=== PATIENT | female | born 1945 | race Caucasian/White ===

== ENCOUNTER 2017-11-05 10:30 | Emergency (ER) | payer MEDICARE, OTHER ==
--- NOTE | 2017-11-05 10:33 | ER Report ---
History and Physical Time Seen By MD: 10:32 HPI/MELONY CHIEF COMPLAINT: "Weird sensation in her heart" HISTORY OF PRESENT ILLNESS: Patient is a 72-year-old female who states that around 8:15 this morning she felt a rushing sensation in her head followed by a little bit of sweating and nausea. This was followed by palpitations and some pressure in the chest. States that she was doing a crossword puzzle at the time. She denies any fevers or chills. She states that she took 324 mg of aspirin prior to arrival to the emergency department. She still reports some mild chest pressure at this time. She denies any current shortness of breath she denies any current headache. She denies any current nausea REVIEW OF SYSTEMS: Constitutional: No fever, no chills. Eyes: No discharge. ENT: No sore throat. Cardiovascular: Palpitations, chest pressure Respiratory: No cough, no shortness of breath. Gastrointestinal: No abdominal pain, no vomiting. Genitourinary: No hematuria. Musculoskeletal: No back pain. Skin: No rashes. Neurological: No headache. Allergies: Coded Allergies: No Known Drug Allergies (Unverified , 11/05/17) Home Meds Reported Medications Aspirin (ASPIR 81) 81 Mg Tablet.dr, 81 MG PO QDAY, TAB 11/05/17 Levothyroxine Sodium (LEVOTHYROXINE SODIUM) 50 Mcg Tablet, 100 MCG PO QDAY, TAB 11/05/17 Losartan Potassium (LOSARTAN POTASSIUM) 25 Mg Tablet, 25 MG PO QDAY 11/05/17 Metoprolol Succinate (METOPROLOL SUCCINATE) 50 Mg Tab.er.24h, 1 TAB PO QDAY, TAB 11/05/17 Past Medical/Surgical History Past medical history for hypertension and hypothyroidism. Constitutional Vital Sign - Last 24 Hours 11/05/17 11/05/17 11/05/17 11/05/17 10:35 10:39 11:00 11:30 Pulse 92 78 Resp 20 9 B/P (MAP) 185/85 185/85 (118) 161/75 (103) Pulse Ox 96 91 O2 Delivery Room Air O2 Flow Rate 2.0 11/05/17 11/05/17 11/05/17 11/05/17 11:30 12:00 12:05 12:30 Pulse 77 72 69 Resp 9 21 14 B/P (MAP) 145/62 (89) 135/62 (86) 147/70 (95) Pulse Ox 94 94 95 11/05/17 11/05/17 11/05/17 11/05/17 12:35 13:00 13:05 14:00 Pulse 67 68 Resp 0 8 B/P (MAP) 151/65 (93) 143/73 (96) Pulse Ox 97 96 11/05/17 14:05 Pulse 67 Physical Exam General/Constitutional: Patient is awake, alert, nontoxic and in no acute respiratory distress. Head: Normocephalic and atraumatic. Eyes: Conjunctival clear, Sclera are clear and anicteric. Ears:External canals are clear. Tympanic membranes are clear with normal landmarks and light reflex. Oropharyngeal: Mucous membranes are moist. Neck: Supple, no adenopathy. Cardiovascular: Heart is regular rate and rhythm without audible murmurs, rubs or gallops. Pulmonary: Lungs are clear to auscultation bilaterally. There are no wheezes, rales, or rhonchi. Chest rise is symmetrical Abdomen: Soft, nontender, no guarding or peritoneal signs. Extremities: No gross deformities, No peripheral cyanosis. Able to move all 4 extremities. Neuro: Alert and oriented X3 Skin: No rashes, skin is warm dry and well perfused. Medical Decision Making Data Points Result Diagram: 11/05/17 1051 11/05/17 1051 Laboratory Hematology Test 11/05/17 10:51 11/05/17 13:32 Red Blood Count 5.24 M/uL (4.17-5.56) Mean Corpuscular Volume 84.8 fL (80.0-96.0) Mean Corpuscular Hemoglobin 29.2 pg (26.0-33.0) Mean Corpuscular Hemoglobin Concent 34.5 g/dL (32.0-36.0) Red Cell Distribution Width 15.4 % (11.5-14.5) Mean Platelet Volume 7.6 fL (7.2-11.1) Neutrophils (%) (Auto) 63.2 % (39.4-72.5) Lymphocytes (%) (Auto) 22.6 % (17.6-49.6) Monocytes (%) (Auto) 9.1 % (4.1-12.4) Eosinophils (%) (Auto) 3.9 % (0.4-6.7) Basophils (%) (Auto) 1.2 % (0.3-1.4) Nucleated RBC Relative Count (auto) 0.0 /100WBC Neutrophils # (Auto) 3.0 K/uL (2.0-7.4) Lymphocytes # (Auto) 1.1 K/uL (1.3-3.6) Monocytes # (Auto) 0.4 K/uL (0.3-1.0) Eosinophils # (Auto) 0.2 K/uL (0.0-0.5) Basophils # (Auto) 0.1 K/uL (0.0-0.1) Nucleated RBC Absolute Count (auto) 0.00 K/uL Prothrombin Time 12.7 seconds (12.0-14.4) Prothromb Time International Ratio 0.95 Activated Partial Thromboplast Time 30 seconds (23-35) Sodium Level 141 mmol/L (137-145) Potassium Level 4.0 mmol/L (3.5-5.0) Chloride Level 107 mmol/L (98-107) Carbon Dioxide Level 24 mmol/L (22-31) Blood Urea Nitrogen 17 mg/dl (7-18) Creatinine 0.90 mg/dl (0.52-1.04) Glomerular Filtration Rate Calc > 60.0 Random Glucose 118 mg/dl (75-110) Calcium Level 9.0 mg/dl (8.4-10.2) Total Bilirubin 0.4 mg/dl (0.2-1.3) Aspartate Amino Transf (AST/SGOT) 32 U/L (0-35) Alanine Aminotransferase (ALT/SGPT) 27 U/L (0-56) Alkaline Phosphatase 132 U/L (0-126) B-Type Natriuretic Peptide 22 pg/ml (0-100) Total Protein 6.9 g/dl (6.3-8.2) Albumin 4.3 g/dl (3.5-5.0) Troponin I < 0.012 ng/ml Chemistry Test 11/05/17 10:51 11/05/17 13:32 White Blood Count 4.8 k/uL (4.5-11.0) Red Blood Count 5.24 M/uL (4.17-5.56) Hemoglobin 15.3 g/dL (12.0-16.0) Hematocrit 44.5 % (34.0-47.0) Mean Corpuscular Volume 84.8 fL (80.0-96.0) Mean Corpuscular Hemoglobin 29.2 pg (26.0-33.0) Mean Corpuscular Hemoglobin Concent 34.5 g/dL (32.0-36.0) Red Cell Distribution Width 15.4 % (11.5-14.5) Platelet Count 424 K/uL (150-450) Mean Platelet Volume 7.6 fL (7.2-11.1) Neutrophils (%) (Auto) 63.2 % (39.4-72.5) Lymphocytes (%) (Auto) 22.6 % (17.6-49.6) Monocytes (%) (Auto) 9.1 % (4.1-12.4) Eosinophils (%) (Auto) 3.9 % (0.4-6.7) Basophils (%) (Auto) 1.2 % (0.3-1.4) Nucleated RBC Relative Count (auto) 0.0 /100WBC Neutrophils # (Auto) 3.0 K/uL (2.0-7.4) Lymphocytes # (Auto) 1.1 K/uL (1.3-3.6) Monocytes # (Auto) 0.4 K/uL (0.3-1.0) Eosinophils # (Auto) 0.2 K/uL (0.0-0.5) Basophils # (Auto) 0.1 K/uL (0.0-0.1) Nucleated RBC Absolute Count (auto) 0.00 K/uL Prothrombin Time 12.7 seconds (12.0-14.4) Prothromb Time International Ratio 0.95 Activated Partial Thromboplast Time 30 seconds (23-35) Glomerular Filtration Rate Calc > 60.0 Calcium Level 9.0 mg/dl (8.4-10.2) Total Bilirubin 0.4 mg/dl (0.2-1.3) Aspartate Amino Transf (AST/SGOT) 32 U/L (0-35) Alanine Aminotransferase (ALT/SGPT) 27 U/L (0-56) Alkaline Phosphatase 132 U/L (0-126) B-Type Natriuretic Peptide 22 pg/ml (0-100) Total Protein 6.9 g/dl (6.3-8.2) Albumin 4.3 g/dl (3.5-5.0) Troponin I < 0.012 ng/ml Coagulation Test 11/05/17 10:51 Prothrombin Time 12.7 seconds Prothromb Time International Ratio 0.95 Activated Partial Thromboplast Time 30 seconds EKG/Imaging EKG Interpretation EKG shows normal sinus rhythm with ventricular rate of [address] segment or T-wave abnormalities are noted. Monitor Interpretation: Normal Sinus Rhythm Imaging FACILITY: [facility] - [place] PATIENT NAME: Swati Valdez : 1945 MR: [id number] V: [id number] EXAM DATE: ORDERING PHYSICIAN: GRICELDA CRUZ TECHNOLOGIST: Location: [facility] - [place] Patient: Swati Valdez : 1945 Visit/Account:[id number] Date of Sevice: 11/05/2017 CHEST SINGLE AP HISTORY: Chest pain. COMPARISON: None available. FINDINGS: Lines/tubes: None. Lungs/pleura: Negative. Heart: Negative. Mediastinum: Negative. Bony structures/body wall: Degenerative changes in the spine. No acute osseous findings. IMPRESSION: No acute cardiopulmonary process. Report Dictated By: Hilton San MD at 11/05/2017 11:10 AM Report E-Signed By: Hilton San MD at 11/05/2017 11:11 AM WSN:[id number] FACILITY: [facility] [place] PATIENT NAME: Swati Valdez : 1945 MR: [id number] V: [id number] EXAM DATE: [id number] ORDERING PHYSICIAN: GRICELDA CRUZ TECHNOLOGIST: Location: [facility] [place] Patient: Swati Valdez : 1945 Visit/Account:[id number] Date of Sevice: 11/05/2017 EXAMINATION: CT head without IV contrast HISTORY: Dizziness, chest pain. COMPARISON: None. TECHNIQUE: Contiguous axial images were obtained from the skull base to the vertex without intravenous contrast. Sagittal and coronal reformatted images are also submitted. One of the following dose optimization techniques was utilized in the performance of this exam: Automated exposure control; adjustment of the mA and/ or kV according to the patient's size; or use of an iterative reconstruction technique. Specific details can be referenced in the facility's radiology CT exam operational policy. FINDINGS: Brain volume: Normal. Ventricles: Incidental cavum velum interpositum, a normal variant. Acute ischemic changes: There is no loss of hutchison-white differentiation to suggest acute ischemia. Hemorrhage: No acute intracranial hemorrhage. Masses/edema: None. Hutchison-white: Negative. White matter: A few hypodensities in the deep white matter bilaterally. Vessels: Minimal atherosclerotic calcifications of the carotid siphons. Extra-axial: Negative. Calvarium/scalp: Negative. Skull base/visualized face: Negative. Visualized sinuses/orbits: Mild mucosal thickening of the paranasal sinuses, worst in the bilateral ethmoid air cells. Mild nasal septal deviation to the left. IMPRESSION: 1. No intracranial mass lesion or hemorrhage. No CT evidence of acute infarct. 2. Mild nonspecific white matter disease is suspicious for chronic small vessel ischemia. Report Dictated By: Rosanne Massey MD at 11/05/2017 11:20 AM Report E-Signed By: Rosanne Massey MD at 11/05/2017 11:23 AM WSN:[id number] ED Course/Re-evaluation Clinical Indication for ER IV: IV Access ED Course 11/05/2017 10:48:31 am patient will have cardiac workup performed with delta troponin. Initial EKG is unremarkable. Patient did receive aspirin. We will continue to monitor patient in the emergency department Re-evaluation 11/05/2017 2:03:44 pm repeat troponin negative patient remained symptom-free we 'll discharge home Decision to Disposition Date: Nov 05, 2017 Decision to Disposition Time: 14:03 Depart Departure Latest Vital Signs Vital Signs Date Time Temp Pulse Resp B/P (MAP) Pulse Ox O2 Delivery O2 Flow Rate FiO2 11/05/17 14:05 67 11/05/17 14:00 143/73 (96) 11/05/17 13:05 8 96 11/05/17 11:30 2.0 11/05/17 10:35 Room Air Impression: Primary Impression: Vasovagal episode Condition: Improved Disposition: HOME OR SELF-CARE Referrals: MARLIN OTTO MD (PCP) CHIN DUBOSE DO 1 Week Schedule possible further evaluation with a shear setter Patient Instructions: Near Syncope (ED), Palpitations (ED) KASARDA,GRICELDA C MD Nov 05, 2017 10:33
[2017-11-05] MEDS ORDERED: ASPIRIN 81 MG CHEW PO ONE (10:35)
[2017-11-05] MEDS ORDERED: LEVO50TA86 PO (10:46)
[2017-11-05] MEDS ORDERED: LOSA25TA50 PO (10:46)
[2017-11-05] MEDS ORDERED: METO50TA19 PO (10:46)
[2017-11-05] MEDS ORDERED: ASPI-1471 PO (10:46)
[2017-11-05 11:04] LABS: PLATELET COUNT, AUTOMATED 424 K/uL (150-450)
[2017-11-05 11:07] LABS: INR 0.95
--- NOTE | 2017-11-05 11:14 | EKG ---
FACILITY: [facility] PATIENT NAME: ATUL PAIGE : [id number] MR: [id number] V: [id number] EXAM DATE: ORDERING PHYSICIAN: GRICELDA CRUZ TECHNOLOGIST: FAM Test Reason : CP Blood Pressure : / mmHG Vent. Rate : 080 BPM Atrial Rate : 080 BPM P-R Int : 176 ms QRS Dur : 094 ms QT Int : 382 ms P-R-T Axes : 052 024 022 degrees QTc Int : 440 ms Sinus rhythm No acute appearing findings No previous ECGs available Confirmed by BRIANA OTTO ([id number]) on 11/05/2017 11:30:21 AM Referred By: ANTHONY Confirmed By:BRIANA OTTO
--- NOTE | 2017-11-05 11:16 | RADIOLOGY IMAGING REPORT ---
[place]ACILITY[place] [facility] [place]IENT NAME: Swati Valdez : 1945 MR: [id number] V: [id number] EXAM DATE: ORDERING PHYSICIAN: GRICELDA CRUZ TECHNOLOGIST: Location: [facility] - [place] Patient: Swati Valdez : 1945 Visit/Account:[id number] Date of Sevice: 11/05/2017 CHEST SINGLE AP HISTORY: Chest pain. COMPARISON: None available. FINDINGS: Lines/tubes: None. Lungs/pleura: Negative. Heart: Negative. Mediastinum: Negative. Bony structures/body wall: Degenerative changes in the spine. No acute osseous findings. IMPRESSION: No acute cardiopulmonary process. Report Dictated By: Hilton San MD at 11/05/2017 11:10 AM Report E-Signed By: Hilton San MD at 11/05/2017 11:11 AM WSN:[id number]
--- NOTE | 2017-11-05 11:28 | RADIOLOGY IMAGING REPORT ---
FACILITY: [facility] - [place] PATIENT NAME: Swati Valdez : 1945 MR: [id number] V: [id number] EXAM DATE: ORDERING PHYSICIAN: GRICELDA CRUZ TECHNOLOGIST: Location: [facility] - [place] Patient: Swati Valdez : 1945 Visit/Account:[id number] Date of Sevice: 11/05/2017 EXAMINATION: CT head without IV contrast HISTORY: Dizziness, chest pain. COMPARISON: None. TECHNIQUE: Contiguous axial images were obtained from the skull base to the vertex without intraven ous contrast. Sagittal and coronal reformatted images are also submitted. One of the following dose optimization techniques was utilized in the performance of this exam: Autom ated exposure control; adjustment of the mA and/or kV according to the patient's size; or use of an i terative reconstruction technique. Specific details can be referenced in the facility's radiology C T exam operational policy. FINDINGS: Brain volume: Normal. Ventricles: Incidental cavum velum interpositum, a normal variant. Acute ischemic changes: There is no loss of hutchison-white differentiation to suggest acute ischemia. Hemorrhage: No acute intracranial hemorrhage. Masses/edema: None. Hutchison-white: Negative. White matter: A few hypodensities in the deep white matter bilaterally. Vessels: Minimal atherosclerotic calcifications of the carotid siphons. Extra-axial: Negative. Calvarium/scalp: Negative. Skull base/visualized face: Negative. Visualized sinuses/orbits: Mild mucosal thickening of the paranasal sinuses, worst in the bilateral ethmoid air cells. Mild nasal septal deviation to the left. IMPRESSION: 1. No intracranial mass lesion or hemorrhage. No CT evidence of acute infarct. 2. Mild nonspecific white matter disease is suspicious for chronic small vessel ischemia. Report Dictated By: Rosanne Massey MD at 11/05/2017 11:20 AM Report E-Signed By: Rosanne Massey MD at 11/05/2017 11:23 AM WSN:[id number]
[2017-11-05 14:00] VITALS: BP 143/73
== END 2017-11-05 14:12 | disposition home or self-care (01) ==
LOC: ER 10:34
DX: R55 Syncope and collapse (principal); I10 Essential (primary) hypertension; E03.9 Hypothyroidism, unspecified; R42 Dizziness and giddiness
CPT/HCPCS: 36415; 70450; 71045; 82040; 82247; 82310; 82374; 82435; 82565; 82947; 83880; 84075; 84132; 84155; 84295; 84443; 84450; 84460; 84484; 84520; 85025; 85610; 85730; 93005; 99284

== ENCOUNTER → 2017-12-01 | Outpatient (CLI) | payer MEDICARE, OTHER ==
[~2017-12-01] MED LIST: ASPI-1471 PO; LEVO50TA86 PO; LOSA25TA50 PO; METO50TA19 PO; REGADENOSON 0.4 MG/5 ML SYR ONE
--- NOTE | 2017-12-01 16:34 | RT STRESS TEST REPORT ---
FACILITY: [facility] - [place] PATIENT NAME: ATUL PAIGE : [id number] MR: [id number] V: [id number] EXAM DATE: ORDERING PHYSICIAN: HENRY DUBOSE TECHNOLOGIST: Benigno Acquisition Time: 2017-12-01 14:41:41 Total Exercise Time: 00:01:00 Test Indications: Chest Discomfort Medications: SEE NUC MED SHEET Protocol: LEXISCAN Max HR: 098 BPM 65% of Pred: 149 BPM Max BP: 161/070 mmHG Max Work Load: 1.0 METS Stress was performed using Lexiscan protocol. She experienced some chest tightness with the infusion. This resolved very quickly. No significant EKG changes were noted. No dysrhythmias were recorded. Await Myoview Images. Confirmed by BRIANA OTTO ([id number]) on 12/01/2017 4:33:28 PM Referred By: Henry Dubsoe Overread By: BRIANA OTTO
--- NOTE | 2017-12-02 09:29 | RADIOLOGY IMAGING REPORT ---
FACILITY: [facility] [place] PATIENT NAME: Swati Valdez : 1945 MR: [id number] V: [id number] EXAM DATE: ORDERING PHYSICIAN: CHIN DUBOSE TECHNOLOGIST: Location: [facility] - [place] Patient: Swati Valdez : 1945 Visit/Account:[id number] Date of Sevice: 12/01/2017 EXAMINATION: Single isotope SPECT imaging with regadenoson infusion and gated SPECT imaging. DATE OF EXAMINATION: 12/01/2017. DATE OF INTERPRETATION: 12/02/2017. REQUESTING PHYSICIAN: CHIN DUBOSE. INDICATION: The patient is a 72-year-old female evaluated for chest pain. PROCEDURE: After informed consent the patient received an intravenous injection of 11.4 mCi of Tc-99 m sestamibi followed at an appropriate time interval by rest imaging. The patient then subsequently received an intravenous infusion of 0.4 mg of regadenoson per protocol without complication. Resting heart rate was 74 bpm with a peak heart rate of 96 bpm. Blood pressure at rest was 142 / 71 and fol lowing infusion was 161 / 70. Baseline EKG demonstrates normal sinus rhythm, normal ST and T-wave.. There were no EKG changes of ischemia following infusion. Symptoms were nonspecific. The patient t hen received an intravenous injection of 29.2 mCi of Tc-99m sestamibi followed by stress imaging. RAW DATA: Examination of the summed raw data revealed a good quality study. MYOCARDIAL PERFUSION: The tomographic images demonstrate no evidence of infarct or ischemia. Transie nt ischemic dilation measures 1.29 however visibly does not appear to be dilated. GATED IMAGES: The gated images demonstrate normal wall motion, ejection fraction 71%. IMPRESSION: 1. Good quality study. 2. Probably normal myocardial perfusion scan. No evidence of infarct or ischemia. Transient ischemic dilation measures 1.29 however visibly does not appear to be dilated making multivessel disease with balanced ischemia unlikely. 3. Normal LV systolic function; LVEF 71%. 4. Based on the results of this exam, the patient appears to be at low risk for future cardiovascular events but remains intermediate risk due to inability to exercise. Report Dictated By: Kenyon Neville at 12/02/2017 9:19 AM Report E-Signed By: Kenyon Neville at 12/02/2017 9:24 AM WSN:[id number]
== END ==
LOC: NUC 00:29
PROVIDERS: ATTEND Family Medicine
DX: R07.2 Precordial pain (principal)
CPT/HCPCS: 78452; 93017; A9500; J2785

== ENCOUNTER 2018-07-16 09:42 | Emergency (ER) | payer MEDICARE, OTHER ==
[~2018-07-16 09:42] MED LIST changes: -LOSA25TA50 PO; +LOSA25TA57 PO; -REGADENOSON 0.4 MG/5 ML SYR ONE
--- NOTE | 2018-07-16 09:52 | ER Report ---
History and Physical Time Seen By MD: 09:51 HPI/ROS CHIEF COMPLAINT: Left upper extremity weakness, transient HISTORY OF PRESENT ILLNESS: Patient is a 73-year-old female here with complaints of acute onset of left upper extremity weakness which was transient, resolving in approximately 4 minutes. Patient is alert and oriented, denies current deficits, numbness, tingling. Patient is neurovascularly intact in all extremities at time of evaluation with no cranial nerve deficits. Patient does report a prior episode of what was described as a transient ischemic attack. Patient is hemodynamically stable at time of evaluation and in no acute d istress. REVIEW OF SYSTEMS: Constitutional: No fever, no chills. Eyes: No discharge. ENT: No sore throat. Cardiovascular: No chest pain, no palpitations. Respiratory: No cough, no shortness of breath. Gastrointestinal: No abdominal pain, no vomiting. Genitourinary: No hematuria. Musculoskeletal: No back pain. Skin: No rashes. Neurological: Resolved left upper extremity weakness Allergies: Coded Allergies: No Known Drug Allergies (Unverified , 11/05/17) Home Meds Reported Medications Levothyroxine Sodium (LEVOTHYROXINE SODIUM) 50 Mcg Tablet, 10 MCG PO QDAY, TAB 07/16/18 Aspirin (ASPIR 81) 81 Mg Tablet.dr, 81 MG PO QDAY, TAB 11/05/17 Losartan Potassium (LOSARTAN POTASSIUM) 25 Mg Tablet, 25 MG PO QDAY 11/05/17 Metoprolol Succinate (METOPROLOL SUCCINATE) 50 Mg Tab.er.24h, 1 TAB PO QDAY, TAB 11/05/17 Discontinued Reported Medications Levothyroxine Sodium (LEVOTHYROXINE SODIUM) 50 Mcg Tablet, 100 MCG PO QDAY, TAB 11/05/17 Constitutional Vital Sign - Last 24 Hours 07/16/18 07/16/18 07/16/18 07/16/18 09:51 09:52 09:57 10:00 Temp 98.6 Pulse 96 86 Resp 16 B/P (MAP) 187/93 187/93 (124) 157/79 (105) Pulse Ox 90 95 O2 Delivery Room Air 07/16/18 07/16/18 07/16/18 07/16/18 10:12 10:27 10:30 10:42 Pulse 77 85 73 B/P (MAP) 158/95 (116) Pulse Ox 94 90 94 07/16/18 07/16/18 07/16/18 11:00 11:27 11:30 Pulse 80 B/P (MAP) ???/??? (1665) 156/102 (120) Pulse Ox 93 Physical Exam General Appearance: The patient is alert, has no immediate need for airway protection and no signs of toxicity. No acute distress Eyes: Pupils equal and round no pallor or injection. ENT, Mouth: Mucous membranes are moist. Respiratory: There are no retractions, lungs are clear to auscultation. Cardiovascular: Regular rate and rhythm. [ ] Gastrointestinal: Abdomen is soft and non tender, no masses, bowel sounds normal. Neurological: No focal neurological deficits at time of evaluation Skin: Warm and dry, no rashes. Musculoskeletal: Neck is supple non tender. Extremities are nontender, nonswollen and have full range of motion. DIFFERENTIAL DIAGNOSIS: After history and physical exam differential diagnosis was considered for weakness including but not limited to electrolyte abnormality, depression, anxiety, CVA, spinal cord abnormality, and infectious causes. TIA Medical Decision Making Data Points Result Diagram: 07/16/18 1042 07/16/18 1010 Laboratory Hematology Test 07/16/18 09:45 07/16/18 10:10 07/16/18 10:42 Urine Color Yellow Urine Clarity Slightly-cloudy Urine pH 5.0 pH (4.8-9.5) Urine Specific [place] 1.024 Urine Protein Negative mg/dL (NEGATIVE) Urine Glucose (UA) Negative mg/dL (NEGATIVE) Urine Ketones Negative mg/dL (NEGATIVE) Urine Blood Negative (NEGATIVE) Urine Nitrite Negative (NEGATIVE) Urine Bilirubin Negative (NEGATIVE) Urine Urobilinogen Negative mg/dL (0.2-1.9) Urine Leukocyte Esterase Small (NEGATIVE) Urine RBC 2 /HPF (0-2/HPF) Urine WBC 4 /HPF (0-5/HPF) Urine Squamous Epithelial Cells Many /LPF (</=FEW) Urine Amorphous Crystals Few /HPF Urine Bacteria Few /HPF (NONE-FEW) Urine Hyaline Casts Few /LPF (NONE-FEW) Urine Mucus Few /HPF (NONE-FEW) Prothrombin Time 13.2 seconds (12.0-14.4) Prothromb Time International Ratio 1.00 Activated Partial Thromboplast Time 31 seconds (23-35) Sodium Level 141 mmol/L (137-145) Potassium Level 4.4 mmol/L (3.5-5.0) Chloride Level 112 mmol/L (98-107) Carbon Dioxide Level 19 mmol/L (22-31) Blood Urea Nitrogen 18 mg/dl (7-18) Creatinine 0.90 mg/dl (0.52-1.04) Glomerular Filtration Rate Calc > 60.0 Random Glucose 93 mg/dl (75-110) Calcium Level 9.5 mg/dl (8.4-10.2) Total Bilirubin 0.6 mg/dl (0.2-1.3) Aspartate Amino Transf (AST/SGOT) 32 U/L (0-35) Alanine Aminotransferase (ALT/SGPT) 35 U/L (0-56) Alkaline Phosphatase 122 U/L (0-126) Troponin I < 0.012 ng/ml Total Protein 6.8 g/dl (6.3-8.2) Albumin 4.4 g/dl (3.5-5.0) Red Blood Count 5.42 M/uL (4.17-5.56) Mean Corpuscular Volume 83.8 fL (80.0-96.0) Mean Corpuscular Hemoglobin 28.0 pg (26.0-33.0) Mean Corpuscular Hemoglobin Concent 33.4 g/dL (32.0-36.0) Red Cell Distribution Width 15.4 % (11.5-14.5) Mean Platelet Volume 7.3 fL (7.2-11.1) Neutrophils (%) (Auto) 66.8 % (39.4-72.5) Lymphocytes (%) (Auto) 20.6 % (17.6-49.6) Monocytes (%) (Auto) 7.4 % (4.1-12.4) Eosinophils (%) (Auto) 3.8 % (0.4-6.7) Basophils (%) (Auto) 1.4 % (0.3-1.4) Nucleated RBC Relative Count (auto) 0.0 /100WBC Neutrophils # (Auto) 3.3 K/uL (2.0-7.4) Lymphocytes # (Auto) 1.0 K/uL (1.3-3.6) Monocytes # (Auto) 0.4 K/uL (0.3-1.0) Eosinophils # (Auto) 0.2 K/uL (0.0-0.5) Basophils # (Auto) 0.1 K/uL (0.0-0.1) Nucleated RBC Absolute Count (auto) 0.00 K/uL Chemistry Test 07/16/18 09:45 07/16/18 10:10 07/16/18 10:42 Urine Color Yellow Urine Clarity Slightly-cloudy Urine pH 5.0 pH (4.8-9.5) Urine Specific [place] 1.024 Urine Protein Negative mg/dL (NEGATIVE) Urine Glucose (UA) Negative mg/dL (NEGATIVE) Urine Ketones Negative mg/dL (NEGATIVE) Urine Blood Negative (NEGATIVE) Urine Nitrite Negative (NEGATIVE) Urine Bilirubin Negative (NEGATIVE) Urine Urobilinogen Negative mg/dL (0.2-1.9) Urine Leukocyte Esterase Small (NEGATIVE) Urine RBC 2 /HPF (0-2/HPF) Urine WBC 4 /HPF (0-5/HPF) Urine Squamous Epithelial Cells Many /LPF (</=FEW) Urine Amorphous Crystals Few /HPF Urine Bacteria Few /HPF (NONE-FEW) Urine Hyaline Casts Few /LPF (NONE-FEW) Urine Mucus Few /HPF (NONE-FEW) Prothrombin Time 13.2 seconds (12.0-14.4) Prothromb Time International Ratio 1.00 Activated Partial Thromboplast Time 31 seconds (23-35) Glomerular Filtration Rate Calc > 60.0 Calcium Level 9.5 mg/dl (8.4-10.2) Total Bilirubin 0.6 mg/dl (0.2-1.3) Aspartate Amino Transf (AST/SGOT) 32 U/L (0-35) Alanine Aminotransferase (ALT/SGPT) 35 U/L (0-56) Alkaline Phosphatase 122 U/L (0-126) Troponin I < 0.012 ng/ml Total Protein 6.8 g/dl (6.3-8.2) Albumin 4.4 g/dl (3.5-5.0) White Blood Count 4.9 k/uL (4.5-11.0) Red Blood Count 5.42 M/uL (4.17-5.56) Hemoglobin 15.2 g/dL (12.0-16.0) Hematocrit 45.5 % (34.0-47.0) Mean Corpuscular Volume 83.8 fL (80.0-96.0) Mean Corpuscular Hemoglobin 28.0 pg (26.0-33.0) Mean Corpuscular Hemoglobin Concent 33.4 g/dL (32.0-36.0) Red Cell Distribution Width 15.4 % (11.5-14.5) Platelet Count 399 K/uL (150-450) Mean Platelet Volume 7.3 fL (7.2-11.1) Neutrophils (%) (Auto) 66.8 % (39.4-72.5) Lymphocytes (%) (Auto) 20.6 % (17.6-49.6) Monocytes (%) (Auto) 7.4 % (4.1-12.4) Eosinophils (%) (Auto) 3.8 % (0.4-6.7) Basophils (%) (Auto) 1.4 % (0.3-1.4) Nucleated RBC Relative Count (auto) 0.0 /100WBC Neutrophils # (Auto) 3.3 K/uL (2.0-7.4) Lymphocytes # (Auto) 1.0 K/uL (1.3-3.6) Monocytes # (Auto) 0.4 K/uL (0.3-1.0) Eosinophils # (Auto) 0.2 K/uL (0.0-0.5) Basophils # (Auto) 0.1 K/uL (0.0-0.1) Nucleated RBC Absolute Count (auto) 0.00 K/uL Coagulation Test 07/16/18 10:10 Prothrombin Time 13.2 seconds Prothromb Time International Ratio 1.00 Activated Partial Thromboplast Time 31 seconds Urinalysis Test 07/16/18 09:45 Urine Color Yellow Urine Clarity Slightly-cloudy Urine pH 5.0 pH (4.8-9.5) Urine Specific [place] 1.024 Urine Protein Negative mg/dL (NEGATIVE) Urine Glucose (UA) Negative mg/dL (NEGATIVE) Urine Ketones Negative mg/dL (NEGATIVE) Urine Blood Negative (NEGATIVE) Urine Nitrite Negative (NEGATIVE) Urine Bilirubin Negative (NEGATIVE) Urine Urobilinogen Negative mg/dL (0.2-1.9) Urine Leukocyte Esterase Small (NEGATIVE) Urine RBC 2 /HPF (0-2/HPF) Urine WBC 4 /HPF (0-5/HPF) Urine Squamous Epithelial Cells Many /LPF (</=FEW) Urine Amorphous Crystals Few /HPF Urine Bacteria Few /HPF (NONE-FEW) Urine Hyaline Casts Few /LPF (NONE-FEW) Urine Mucus Few /HPF (NONE-FEW) EKG/Imaging EKG Interpretation PATIENT NAME: SWATI VALDEZ : [id number] MR: [id number] V: [id number] EXAM DATE: ORDERING PHYSICIAN: ANTONIO NAIR TECHNOLOGIST: Test Reason : intermittent rapid hr Blood Pressure : / mmHG Vent. Rate : 080 BPM Atrial Rate : 080 BPM P-R Int : 164 ms QRS Dur : 090 ms QT Int : 398 ms P-R-T Axes : 053 046 030 degrees QTc Int : 459 ms Normal sinus rhythm Normal ECG When compared with ECG of 05-NOV-2017 10:44, Relatively unchanged Confirmed by LINDSAY PARSONS ([id number]) on 07/16/2018 12:36:31 PM Referred By: Confirmed By:LINDSAY PARSONS Monitor Interpretation: Normal Sinus Rhythm Imaging PATIENT NAME: Swati Valdez : 1945 MR: [id number] V: [id number] EXAM DATE: [id number] ORDERING PHYSICIAN: ANTONIO NAIR TECHNOLOGIST: Location: [facility] - [place] Patient: Swati Valdez : 1945 Visit/Account:[id number] Date of Sevice: 07/16/2018 Exam type: MR BRAIN/BRAIN STEM W/O CON Clinical Indication: Rule out CVA. Left-sided weakness yesterday. Comparison: CT head dated November 05, 2017. Technique: Multiplanar and multisequence MRI images of the brain were obtained without IV contrast. Result: DWI and ADC are negative for acute ischemia. The normally visualized major intracranial flow-voids are preserved. There is normal noyola-white matter differentiation. There is moderate scattered T2 hyperintensities within the periventricular and subcortical white matter which are nonspecific however likely represent chronic microvascular ischemic changes. . The ventricles and sulci are within normal limits for age. There is no evidence of intra cerebral hemorrhage, intracranial mass, or extraaxial fluid collection. The visualized midline structures including the corpus callosum, pituitary, and brainstem are within normal limits. The visualized bony structures and soft tissues are within normal limits. The visualized orbits are within normal limits. Mild paranasal sinus disease. Impression: 1. No acute findings. 2. Moderate scattered T2 hyperintensities within the periventricular and subcortical white matter which are nonspecific however likely represent chronic microvascular ischemic changes. ED Course/Re-evaluation ED Course Patient is a 73-year-old female here with complaints of resolved left upper extremity weakness which occurred shortly prior to arrival within the last half hour. Patient reportedly had weakness of the entire extremity which quickly regained function without residual deficits. Patient denies prior history of stroke. MRI imaging was completed due to patient's risk factors and reported history of a TIA in the past. MRI imaging showed no acute findings. Labs were unremarkable, electrolytes were normal. Patient was updated regarding these findings and voiced understanding. Close PCP follow-up recommended. Return precautions provided. Decision to Disposition Date: Jul 16, 2018 Decision to Disposition Time: 12:44 Depart Departure Latest Vital Signs Vital Signs Date Time Temp Pulse Resp B/P (MAP) Pulse Ox O2 Delivery O2 Flow Rate FiO2 07/16/18 11:30 156/102 (120) 07/16/18 11:27 80 93 07/16/18 09:51 98.6 16 Room Air Impression: Primary Impression: Left arm weakness Condition: Improved Disposition: HOME OR SELF-CARE Patient Instructions: Weakness (ED) Additional Instructions: Please return immediately if you develop recurrent episodes of weakness. MRI imaging did not identify a stroke today. Please drink plenty of water. Please follow-up with her family doctor in the next 24-48 hours. Please return immediately if you develop fevers, weakness, nausea, vomiting, headache, blurry vision, numbness. ANTONIO NAIR DO Jul 16, 2018 09:52
[2018-07-16 10:47] LABS: PLATELET COUNT, AUTOMATED 399 K/uL (150-450)
[2018-07-16 11:30] VITALS: BP 156/102
--- NOTE | 2018-07-16 11:37 | RADIOLOGY IMAGING REPORT ---
FACILITY: [facility] PATIENT NAME: Swati Valdez : 1945 MR: [id number] V: [id number] EXAM DATE: ORDERING PHYSICIAN: ANTONIO NAIR TECHNOLOGIST: Location: [facility] - [place] Patient: Swati Valdez : 1945 Visit/Account:[id number] Date of Sevice: 07/16/2018 Exam type: MR BRAIN/BRAIN STEM W/O CON Clinical Indication: Rule out CVA. Left-sided weakness yesterday. Comparison: CT head dated November 05, 2017. Technique: Multiplanar and multisequence MRI images of the brain were obtained without IV contrast. Result: DWI and ADC are negative for acute ischemia. The normally visualized major intracranial flow- voids are preserved. There is normal noyola-white matter differentiation. There is moderate scattered T2 hyperintensities wi thin the periventricular and subcortical white matter which are nonspecific however likely represent chronic microvascular ischemic changes. . The ventricles and sulci are within normal limits for age. There is no evidence of intra cerebral hemorrhage, intracranial mass, or extraaxial fluid collectio n. The visualized midline structures including the corpus callosum, pituitary, and brainstem are within normal limits. The visualized bony structures and soft tissues are within normal limits. The visualized orbits are w ithin normal limits. Mild paranasal sinus disease. Impression: 1. No acute findings. 2. Moderate scattered T2 hyperintensities within the periventricular and subcortical white matter whi ch are nonspecific however likely represent chronic microvascular ischemic changes. Report Dictated By: Jose Arciniega MD at 07/16/2018 11:31 AM Report E-Signed By: Jose Arciniega MD at 07/16/2018 11:33 AM WSN:[id number]
[2018-07-16] MEDS ORDERED: LEVO50TA86 PO (11:38)
--- NOTE | 2018-07-16 12:34 | EKG ---
FACILITY: [facility] - [place] PATIENT NAME: ATUL PAIGE : [id number] MR: [id number] V: [id number] EXAM DATE: ORDERING PHYSICIAN: ANTONIO NAIR TECHNOLOGIST: Test Reason : intermittent rapid hr Blood Pressure : / mmHG Vent. Rate : 080 BPM Atrial Rate : 080 BPM P-R Int : 164 ms QRS Dur : 090 ms QT Int : 398 ms P-R-T Axes : 053 046 030 degrees QTc Int : 459 ms Normal sinus rhythm Normal ECG When compared with ECG of 05-NOV-2017 10:44, Relatively unchanged Confirmed by LINDSAY PARSONS ([id number]) on 07/16/2018 12:36:31 PM Referred By: Confirmed By:LINDSAY PARSONS
== END 2018-07-16 12:30 | disposition home or self-care (01) ==
LOC: ER 10:07
DX: M62.81 Muscle weakness (generalized) (principal); Z86.73 Personal history of transient ischemic attack (TIA), and cerebral infarction without residual deficits
CPT/HCPCS: 70551; 81001; 82040; 82247; 82310; 82374; 82435; 82565; 82947; 84075; 84132; 84155; 84295; 84450; 84460; 84484; 84520; 85025; 85610; 85730; 93005; 99284